=== PATIENT | female | born 1990 | race Caucasian/White ===

== ENCOUNTER 2024-12-03 21:44 | Emergency (ER) | payer OTHER, SELFPAY ==
--- OUTSIDE RECORDS SUMMARY | 2008-08-30 05:53 | XMS_ITS | Continuity of Care Document ---
Author Organization [facility] Address [address] [address] [place] [address] Phone Care Team Providers Care Quantometer Operator Name Role Phone Unavailable Unavailable Unavailable Allergies, Adverse Reactions, Alerts Substance Reaction Status Criticality No Known allergies Medications Medication Instructions Dosage Effective Dates (start - stop) Status Comments Levsin/SL 0.125 mg Sublingual Tab Use as directed. 1-2 qid prn - Active Zoloft 50 mg Tab Take one tablet by mouth daily - Active NuvaRing 0.12 mg -0.015 mg/24 hr Vaginal Use as directed - Active Procedures Procedure Date Ugi Endo; W/bx /mx Colonoscopy Flex; W/bx /mx Offic Cons New/estab Mod-hi 60 09 [id number] Advance Directives Directive Yes / No Effective Date File Name No Information Encounters Encounter Description Practice Location Reason(s) For Visit Diagnoses Date Provider Providers Copied on Encounter [facility], [address] [address], [place], [place], [id number], [place] tel:[phone] Dhiraj [facility] No Information 9 No Information [facility], [address] [address], [place], [place], [id number], [place] tel:[phone] [facility] No Information 9 No Information Offic Cons New/estab Mod-hi 60 [facility], [address] [address], [place], [place], [id number], tel:[phone] [facility] Abdominal pain (chief complaint)F requent bowel movements (chief complaint) Irritable Bowel Syndrome 9 No Information Referring Provider: Nando DALE, [address], [place], [address]. tel:[phone] Family History Family Member Type Diagnosis Age At Onset First degree family history Problem (finding) No history of Crohn's First degree family history Problem (finding) No Family history of No history of Colon Polyps First degree family history Problem (finding) No history of Ulcerative Colitis First degree family history Problem (finding) No history of Cancer, colon Payers Payer name Insurance type Covered alliance party ID Ladarius carmona(s) DEUS CR/MA CI [id number] Social History Type Description Quantity Date Captured Comments Sex Female Smoking Status No Information Chief Complaint And Reason For Visit No Information Reason For Referral Reason For Referral No Information History Of Present Illness Encounter Date Complaint History Of Prese nt Illness No Information Functional Status Date Functional Assessmen t No Information Instructions Date Instruction Additional Infor mation No Information Assessments Type Assessment Date No Information Patient Care Teams Name Effective Dates (start - stop) Status Members No Information
--- OUTSIDE RECORDS SUMMARY | 2008-08-30 05:53 | XMS_ITS | Continuity of Care Document ---
Author Organization [facility] Address [address] [address] [place] [address] Phone Care Team Providers Care Blockmason Name Role Phone Unavailable Unavailable Unavailable Allergies, [...] Diagnoses Date Provider Providers Copied on Encounter [facility], [address] [address], [place], [place], [id number], [place] tel:[phone] Dhiraj [facility] No Information 9 No Information [facility], [address] [address], [place], [place], [id number], [place] tel:[phone] [facility] No Information 9 No Information Offic Cons New/estab Mod-hi 60 [facility], [address] [address], [place], [place], [id number], tel:[phone] [facility] Abdominal pain (chief complaint)F requent bowel movements (chief complaint) Irritable Bowel Syndrome 9 No Information Referring Provider: Nando DALE, [address], [place], [address]. tel:[phone] Family History Family Member Type Diagnosis Age At Onset First degree family history Problem (finding) No history of Crohn's First degree family history Problem (finding) No Family history of No history of Colon Polyps First degree family history Problem (finding) No history of Ulcerative Colitis First degree family history Problem (finding) No history of Cancer, colon Payers Payer name Insurance type Covered democrat ID Ladarius carmona(s) [place] CR/MA CI [id number] Social History Type Description Quantity Date Captured [...]
--- OUTSIDE RECORDS SUMMARY | 2024-11-29 14:55 | XMS_ITS | Encounter Summary ---
Author Organization [facility] Address [address] [place] [address] Care Team Providers Care Speech Lang Path Name Role Phone Elsewhere, Pcp Primary Care Provider Unavailabl e Reason for Visit * Reason Comments Back Pain Patient presents wit h back pain that started about 4 days ago. She did build a barn by herself and thinks that is what caused the pain. Encounter Details Date Type Department Care Team (Late st Contact Info) Description 11/29/2024 2:55 PM CDT - 11/29/2024 4:00 PM CDT Emergency [facility] [address] [place] [address] Katie Lee P.A.-C., P.A. 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 Gender Identity Not on file Sexual Orientation Not on file documented as of this encounter Last Filed Vital Signs Vital Sign Reading Time Taken Comments Blood Pressure 141/89 11/29/2024 2:13 PM CDT Pulse 73 11/29/2024 2:13 PM CDT Temperature 36 C (96.8 F) 11/29/2024 2:13 PM CDT Respiratory Rate 18 11/29/2024 2:13 PM CDT Oxygen Saturation 100% 11/29/2024 2:13 PM CDT Inhaled Oxygen Concentration - - Weight 97.7 kg (215 lb 4.8 oz) 11/29/2024 2:09 P M CDT Height 172.7 cm (5' 8) 11/29/2024 2:09 PM CDT Body Mass Index 32.74 11/29/2024 2:09 PM CDT documented in this encounter Discharge Instructions * Attachments The following attachments cannot be sent through Care Everywhere. * Acute Back Pain Adult (Khmer) documented in this encounter Medications at Time of Discharge acetaminophen (TylenoL) 325 mg tablet Take 650 mg by mouth. 08/11/2018 albuterol 90 mcg/actuation inhaler Inhale 2 puffs every 6 (six) hours as needed for wheezing. 6.7 g 04/27/2024 baclofen (LioresaL) 10 mg tablet Take 1 tablet (10 mg total) by mouth 3 (three) times a day for 10 days. 30 tablet 11/29/2024 12/09/2024 benzonatate (Tessalon Perles) 100 mg capsule Take 1 capsule (100 mg total) by mouth 3 (three) times a day as needed for cough. 20 capsule 04/27/2024 dextroamphetamine -amphetamine (AdderalL) 15 mg tablet Take 15 mg by mouth. 09/28/2023 ibuprofen 600 mg tablet Take 600 mg by mouth. 06/24/2017 naproxen (Naprosyn) 500 mg tablet Take 1 tablet (500 mg total) by mouth every 12 (twelve) hours as needed for pain. 20 tablet 11/29/2024 documented as of this encounter Plan of Treatment Not on file documented as of this encounter Visit Diagnoses Diagnosis Pain Back- Primary documented in this encounter Administered Medications Inactive Administered Medications - up to 3 most recent administrations Medication Order MAR Action Action Date Dose Rate Site ketorolac injection 30 mg (ToradoL) 30 mg, intramuscular, Once, On 11/29/24 at 1536, For 1 dose, Adult IV push rate: Over 15 seconds. Peds IV push rate: Over 1 minute. Doses > 15 mg IV/IM are discouraged due to lack of additional analgesic benefit. Given 11/29/2024 3:44 PM CDT 30 mg Right Deltoid documented in this encounter Active and Recently Administered Medications Times are shown in CDT. Scheduled Medication Order 11/27/2024 11/28/2024 11/29/2024 ketorolac injection 30 mg (ToradoL) (COMPLETED) 30 mg, intramuscular, Once, On 11/29/24 at 1536, For 1 dose, Adult IV push rate: Over 15 seconds. Peds IV push rate: Over 1 minute. Doses > 15 mg IV/IM are discouraged due to lack of additional analgesic benefit. 1544 (Given - Provid er: Marni Felix) documented in this encounter Care Teams Speech Lang Path Relationship Specialty Start Date End Date Elsewhere, Pcp PCP - General Family Medicine 07/17/20 documented as of this encounter
[2024-12-03] VITALS (19 sets, daily range): BP systolic 127–152; BP diastolic 82–97; PULSE 70–82; RESP 14–22; TEMP 36.6; O2SAT 97–100; BMI 26.6
--- OUTSIDE RECORDS SUMMARY | 2024-12-03 21:46 | XMS_ITS | Encounter Summary ---
Author Organization [facility] Address [address] [place] [address] Care Team Providers Care Chemotherapist Name Role Phone Zoila Huff MD Primary Care Provider Reason for Visit * Reason Comments Medication Problems Encounter Details Date Type Department Care Team (Late st Contact Info) Description 01/20/2023 Nurse Triage [facility] [address] [place], [place] [phone] Zoila Huff MD [address] [place] [phone] Medication Problems Social History Tobacco Use Types Packs/Day Years Used Date Smoking Tobacco: Former Cigarettes Q uit: 05/27/2013 Smokeless Tobacco: Former Chew Alcohol Use Standard Drinks/Week Comments Not Currently 0 (1 standard drink = 0.6 oz pur e alcohol) PHQ-2 Answer Date Recorded PHQ-2 Score 2 08/01/2022 Financial Resource Strain Answer Date R ecorded Is it hard for you to pay fo r the very basics like food, housing, medical care or heating? No 08/01/2022 Food Insecurity Answer Date Recorded Does your food run out before you have the money to buy more? No 08/01/2022 Transportation Needs Answer Date Record ed Does a lack of transportatio n keep you from your medical appointments or from getting your medications? 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 Not on file Not on file Not on file documented as of this encounter Nursing Notes * oZila Huff MD - 01/20/2023 4:42 PM CST Rx sent as requested ENFORCEMENT INSPECTOR * Elizabeth Kilpatrick RN - 01/20/2023 4:31 PM CST Clinician: Review order(s) and sign as appropriate and Close encounter Patient/youth care worker request: New Order: Medication Specific Request: Adderall 30 mg Take 0.5 tablet three times daily Reason for Disposition Caller has NON-URGENT medicine question about med that PCP or specialist prescribed and triager unable to answer question Protocols used: Medication Question [id number] Spoke with patient states needs Adderall 30 mg Take 0.5 tablet three times daily sent to [facility]. Prescription was sent for Adderall 15 mg and there are no pharmacies that have the 15 mg dose. ENFORCEMENT INSPECTOR * Daren Quiñones - 01/20/2023 4:21 PM CST Medications - Med Change / Question Is this a medication change or a general question? Med Change What is the name and dose of the current medication? Adderall 15 mg. 3 x day. Pt states all of the pharmacies are out of the 15 mg but they have the 30 mg. So the pharmacist recommend to have a new Rx for the 30 mg tabs and they can cut it in half. Please assist Do you know what medication/dosage you would like to change to? (If yes, what is the medication name/dosage?) Yes: Adderall 30 mg Why do you need to change medication/dosage? Because all pharmacies are out of the 15 mg. How often do you take it? 3 x day of 15 mg Who prescribed it? Zoila Huff MD Additional comments (related to the above concern): For this medication, patient would like it filled at the pharmacy listed in Medication Management. Is it okay to leave a detailed message on your voicemail? Yes Is there anything else I can help you with today? No ENFORCEMENT INSPECTOR documented in this encounter Plan of Treatment Not on file documented as of this encounter Visit Diagnoses Not on filedocumented in this encounter Care Teams Chemotherapist Relationship Specialty [place] [address] [address] [place] [address] PCP - General Family Practice 10/31/15 documented as of this encounter
--- OUTSIDE RECORDS SUMMARY | 2024-12-03 21:46 | XMS_ITS | Clinical Summary ---
Author Organization [facility] Address [facility] [place] [address] Care Team Providers Care Icu Tech Name Role Phone Zoila Huff MD Primary Care Provider [phone] [place] William DO Unavailable [phone] Allergies Active Allergy Reactions Criticality Noted Date Comments Amoxicillin Hives,Swelling 08/26/2011 Varenicline 07/20/2013 Metronidazole Hcl Hives,Swelling 03/01/2013 Medications EPINEPHrine (EPIPEN) 0.3 MG/0.3ML injection Inject 0.3 mLs (0.3 mg) into the muscle once as needed for anaphylaxis Then go immediately to the emergency department 1 each 0 3 Active ibuprofen (ADVIL/MOTRIN) 600 MG tabletIndication s:Postoperative pain Take 1 tablet (600 mg) by mouth every 6 hours as needed for pain Take w/ food 30 tablet 8 Active acetaminophen (TYLENOL) 325 MG tabletIndication s:S/P hysterectomy Take 2 tablets (650 mg) by mouth every 4 hours as needed for other (mild pain) 100 tablet 9 Active oxyCODONE (ROXICODONE) 5 MG tabletIndication s:S/P hysterectomy Take 1-2 tablets (5-10 mg) by mouth every 3 hours as needed for pain (Moderate to Severe) 40 tablet 9 Active Active Problems Problem Noted Date Diagnosed Date Retained placenta with hemorrhage, co ndition 06/24/2017 Resolved Problems Problem Noted Date Diagnosed Date Resolved Date Normal labor and delivery 06/19/2017 Abdominal pain 04/17/2017 06/24/2017 Encounter for triage in patient 03/15/2017 06/24/2017 (spontaneous vaginal delivery) 04/25/2014 06/24/2017 Supervision of low-risk 04/21/2014 06/24/2017 Indication for care or inter vention related to labor and delivery 12/30/2013 06/24/2017 Overview (01/09/2015): Diagnosis updated by automated process. Provider to review and confirm. Indication for care in labor or delivery 12/08/2013 06/24/2017 Abdominal pain, right lower quadrant 07/26/2013 06/24/2017 Immunizations Immunization Administration Dates Next Due TDAP Vaccine (Adacel) 06/21/2017 Family History Medical History Relation Comments Diabetes Maternal Grandmother Relation Status Comments Maternal Grandmother Social History Tobacco Use Types Packs/Day Years Used Date Smoking Tobacco: Former Cigarettes Q uit: 05/30/2013 Smokeless Tobacco: Never Alcohol Use Standard Drinks/Week Comments Yes 0 (1 standard drink = 0.6 oz pur e alcohol) occasionally Comments No Sex and Gender Information Value Date Recorded Sex Assigned at Not on file Legal Sex Female 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 Gender Identity Not on file Sexual Orientation Not on file Last Filed Vital Signs Vital Sign Reading Time Taken Comments Blood Pressure 117/70 12/12/2018 6:11 PM CDT Pulse 77 12/12/2018 6:11 PM CDT Temperature 37.1 C (98.8 F) 12/12/2018 4:21 PM CDT Respiratory Rate 16 12/12/2018 6:27 PM CDT Oxygen Saturation 98% 12/12/2018 6:27 PM CDT Inhaled Oxygen Concentration - - Weight 81.6 kg (180 lb) 12/12/2018 4:21 PM CDT Height 172.7 cm (5' 8) 12/12/2018 4:21 PM CDT Body Mass Index 27.37 12/12/2018 4:21 PM CDT Plan of Treatment Not on file Insurance [facility] Care Teams Icu Tech Relationship Specialty Start Date End Date Zoila Huff MD [place] [address] [address] [place] [address] PCP - General Family Practice 03/25/14 [place] William DO [place] [address] [address] [place] [address] apartment leasing consultant 03/25/14
--- OUTSIDE RECORDS SUMMARY | 2024-12-03 21:46 | XMS_ITS | Encounter Summary ---
Author Organization [facility] Address [address] [place] [address] Care Team Providers Care Layer Out Plate Glass Name Role Phone Zoila Huff MD Primary Care Provider Reason for Visit * Reason Onset Date Comments Medication Request 11/09/2015 Encounter Details Date Type Department Care Team (Late st Contact Info) Description 11/09/2015 Nurse Triage [facility] [address] [place], [place] [phone] Zo[place] [id number] [place] [phone] Medication Request Social History Tobacco Use Types Packs/Day Years Used Date Smoking Tobacco: Former Smokeless Tobacco: Never Comments:Quit smokin Alcohol Use Standard Drinks/Week Comments Yes 0 (1 standard drink = 0.6 oz pur e alcohol) 2 drinks twice monthly Comments Yes Sex and Gender Information Value Date Recorded Sex Assigned at Not on file Legal Sex Female 4:54 AM CDT Gender Identity Not on file Sexual Orientation Not on file 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 * Zoila Huff MD - 11/09/2015 1:29 PM CDT I will have to see her tomorrow to see if BV or yeast at this point. Can she come at 10:30 tomorrow? * Nasima Breen RN - 11/09/2015 10:45 AM CDT Reason for Call: Medication Request. Next Steps: Document further recommendations and route to appropriate person or pool. Caller IS expecting a call back from Care Team. Additional Information: Patient was treated by Urgent Care on 10/29/15 for sinus infection and BV, The BV symptoms did not improve, is requesting an ORAL RX for this. Declined appointment. Please advise. Protocol: VAGINAL [id number] Affirmative: Bad smelling vaginal discharge Disposition of See Within 3 Days In Office suggested. Called patient back. Still with same vaginal discharge, whitish, slight odor, not itchy. Treated for the BV with Clindamycin vaginal suppositories for 3 days, states those don't tend to work for her.Also had Doxycycline 100 mg BID for 5 days for the sinus infection. After UC, was seen in the ED, has endometriosis, and was seen in OBG for follow up. Pharmacy: [facility] * Lisa Aguirre - 11/09/2015 10:04 AM CDT Pt calling advised that she has a vaginal bacterial infection and was seen on 10-29-15 in urgent care. Pt still has same symptoms as when in urgent care discharge slight odor,and burning. Pt advised that the medication prescribed in urgent care has not worked and requesting something else be prescribed. documented in this encounter Plan of Treatment Not on file documented as of this encounter Visit Diagnoses Not on filedocumented in this encounter Additional Health Concerns Infection Onset Date Last Indicated Resolved Time R/O COVID19 01/27/2020 01/27/2020 01/29/2020 5:38 PM DATA ENTRY ASSOCIATE R/O COVID19 12/12/2020 12/12/2020 12/13/2020 1:04 PM CDT COVID19 12/12/2020 12/12/2020 01/01/2021 3:17 AM CDT documented as of this encounter Care Teams Layer Out Plate Glass Relationship Specialty [place] [address] [place] [address] PCP - General Family Practice 10/31/15 documented as of this encounter
--- OUTSIDE RECORDS SUMMARY | 2024-12-03 21:46 | XMS_ITS | Encounter Summary ---
Author Organization [facility] Address [address] [place] [address] Care Team Providers Care Dryland Farmer Name Role Phone Zoila Huff MD Primary Care Provider Encounter Details Date Type Department Care Team (Late st Contact Info) Description 09/21/2024 E-Visit [facility] Medicine [address] [place], [place] [phone] Christy Arriaga, FIRER RETORT, WASH TEST CHECKER [address] [place] [address] Social History Tobacco Use Types Packs/Day Years Used Date Smoking Tobacco: Former Cigarettes Q uit: 05/27/2013 Smokeless Tobacco: Former Chew Alcohol Use Standard Drinks/Week Comments Not Currently 0 (1 standard drink = 0.6 oz pur e alcohol) PHQ-2 Answer Date Recorded PHQ-2 Score 1 07/17/2023 Financial Resource Strain Answer Date R ecorded [...] Recor ded Last EPDS Total Score 12 04/12/2024 Last EPDS Self Harm Result Not on file 04/12 Comments No Sex and Gender Information Value Date Recorded Sex Assigned at Not on file Legal Sex Female 4:54 AM CDT Gender Identity Not on file Sexual Orientation Not on file 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
--- OUTSIDE RECORDS SUMMARY | 2024-12-03 21:46 | XMS_ITS | Clinical Summary ---
Author Organization [facility] Address [address] [place] [address] Care Team Providers Care Fiscal Economist Name Role Phone Zoila Huff MD Primary Care Provider Source Comments You are receiving this document as you are listed as the primary care provider,follow-up provider, or the patient has been referred to you for consultation.This is in compliance with the Medicare and[facility] EHR Incentive Program,which states Providers who transition their patient to another setting of careor provider of care or refers their patient to another provider of care shouldprovide summary care record for each transition of care or referral. [place] Allergies Active Allergy Reactions Criticality Noted Date Comments Amoxicillin Rash 05/14/2005 Duloxetine Other, see comments Low 08/18/2021 Flu like feeling, drowsiness Metronidazole Anaphylaxis High 07/03/2020 Varenicline Headache,Nausea And Vomiting 07/13/2012 Medications EPINEPHrine (EPIPEN) 0.3 MG/0.3ML injection Inject 0.3 mL (0.3 mg) intramuscularly at bedtime as needed. 07/17/19 21 Active levalbuterol (XOPENEX HFA) 45 mcg/actuation inhalerIndication s:Cough, unspecified type Inhale 1-2 Puffs every 4 hours as needed for Wheezing or Shortness of Breath (or cough). 1 Each 06/17/19 25 Active guaiFENesin-codei ne (ROBITUSSINAC) 100-10 MG/5ML solutionIndicatio ns:Cough, unspecified type Take 5 mL by mouth every 4 hours as needed. 118 mL 06/17/19 25 Active fluconazole (DIFLUCAN) 150 MG tabletIndications :Acute sinusitis, recurrence not specified, unspecified location Take 1 tablet every other day to prevent yeast infection. 5 Tablet 06/17/19 25 Active amphetamine-dextr oamphetamine (ADDERALL) 15 MG tabletIndications :Attention Deficit Hyperactivity Disorder Take 1 Tablet (15 mg) by mouth three times a day for 30 days. 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 Zamorano Resolved Problems Problem Noted Date Diagnosed Date Resolved Date Depression 11/02/2022 07/17/2023 Effusion of knee 01/14/2020 06/19/2021 Endometriosis 08/17/2019 01/12/2021 Retained placenta with hemor rhage, condition 06/24/2017 08/13/2017 Supervision of other normal , antepartum 03/31/2017 06/24/2017 Mild episode of recurrent ma rosina depressive disorder 08/13/2016 07/17/2023 Controlled substance agreement signed 05/01/2016 08/19/2018 Overview (10/08/2017): Diagnosis: severe dysmenorrhea Medication: norco 5/325 Controlled Substance Agreement reviewed and signed: yes Date agreement signed: 05/01/2016 Refill plan: #30 every month Clinician: Zoila Huff MD Severe dysmenorrhea 05/01/2016 03/31/19 18 Encounter for supervision of other normal 12/24/2013 11/02/2014 Overview (10/30/2016): Supervision of other normal Abdominal pain, chronic, right lower quadrant 07/31/19 14 09/28/2013 Anxiety 07/07/2013 11/25/2015 Menorrhagia 07/07/2013 09/28/2013 Dysmenorrhea 07/07/2013 09/28/2013 Malpositioned IUD 09/07/2012 07/07/2013 IUD (intrauterine device) in place 08/08/2012 08/30/2013 Overview (10/12/2015): [place] Assessment & Plan (08/30/2013 3:21 PM CDT): fell out Tobacco abuse 06/17/2012 08/30/2013 Encounter for supervision of other normal 11/14/2009 06/02/2012 Overview (10/30/2016): LW Modifier: Unknown LMP, for MSR purposes, 09/20/2009 LW Onset: edc06/26/10 ; Preg Normal Not 1st Preg Irritable bowel syndrome 04/28/200909/2009 Molluscum contagiosum 08/18/20082011 Overview (10/12/2015): LW Onset: 07/16 Pain in joint, lower leg 01/30/200706/2014 Overview (10/30/2016): LW Modifier: Right > Left (MRI R 02/17/07 chondromal) LW Onset: 2000 ; Patellofemoral Pain Syndrome Major depressive disorder, single episode 06/26/2006 09/28/2013 Overview (10/30/2016): Depression Major NOS Exercise-induced bronchospasm 06/26/2006 04/13/2014 Overview (10/30/2016): Asthma Exercise Induced Encounters Date Type Department Care Team Description 10/29/[address] [address] Zoila Huff MD Refill 09/21/2024 E-Visit [facility] [address] [place] [address] Christy Arriaga, WALLPAPER REMOVER STEAM, INSPECTOR MACHINED PARTS from Last 3 Months Immunizations Immunization Administration Dates Next Due 4vHPV (Gardasil) 08/04/2007,01/28/2007, 7 DTP 05/20/1995, 2,04/07/1991,1990 Flu Vac Preserv Free (3+yrs) 01/14/2012, 11/14/2009,11/22/2008,2007 HepA Ped/Adol (1-18 yrs) 12/14/2007,08/04/2007 HepB Ped/Adol (0-18 yrs) 09/19/2003,04/04/2003,0 11/04/2002 Influenza IIV4 (Quadrivalent ) 0.5mL (43516) 12/19/2016,11/10/2015,12/12/2014,2013 MCV4 (Menactra) 02/07/2005 MMR 11/04/2002,11/24/1991 Pfizer Monovalent 12+ Purple Top 08/25/2021 Polio, Unspecified Formulation 6,11/24/1991,04/07/1991,1990 TDAP (ADACEL) 08/27/2007 TDAP (BOOSTRIX) 02/08/2014 Td 10/22/2002 Tdap 06/21/2017 Family History Medical History Relation Name Comments Depression Father Ramakrishna Migraines Brother 1 Macular Degeneration Brother 2 Alzheimer's Maternal Grandfather Diabetes Maternal Grandmother Florinda High Cholesterol Maternal Grandmother Florinda Hypertension Maternal Grandmother Florinda Multiple Sclerosis Other paternal side of family Parkinsons Other maternal side o f family Cancer, Breast Paternal Aunt postmenopaus al Cancer, Lung Paternal Grandfather Cataract Paternal Grandmother Florinda High Cholesterol Paternal Grandmother Florinda Macular Degeneration Paternal Grandmother Florinda Amblyopia/Strabismus Negative Family History Cardiovascular Disease Negative Family History Glaucoma Negative Family History Retinal Detachment Negative Family History Thyroid Disorder Negative Family History Relation Name Status Comments Father Ramakrishna Alive Mother Alive Brother 1 Alive Brother 2 Alive Maternal Grandfather Maternal Grandmother Florinda Alive Other Paternal Aunt Paternal Grandfather Paternal Grandmother Florinda Alive Social History Tobacco Use Types Packs/Day Years Used Date Smoking Tobacco: Former Cigarettes Q uit: 05/27/2013 Smokeless Tobacco: Former Chew Tobacco Cessation:Counseling Given: No Alcohol Use Standard Drinks/Week Comments Not Currently [...] 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, 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 Not on file Not on file Not on file Last Filed Vital Signs Vital Sign Reading Time Taken Comments Blood Pressure 139/78 06/16/2024 1:53 PM CDT Pulse 88 06/16/2024 1:53 PM CDT Temperature 36.8 C (98.3 F) 06/16/2024 1:53 PM CDT Respiratory Rate 18 06/16/2024 1:53 PM CDT Oxygen Saturation 100% 06/16/2024 1:53 PM CDT Inhaled Oxygen Concentration - - Weight 84.8 kg (187 lb) 01/05/2024 9:26 AM CDT Height 172.7 cm (5' 8) 01/05/2024 9:26 AM CDT Body Mass Index 28.43 01/05/2024 9:26 AM CDT Plan of Treatment Health Maintenance Due Date Last Done Comments HepA Vaccine (2 of 2 - Risk 2-dose series) 06/13/2008 12/14/2007, 08/04/2007 COVID-19 Vaccine (2 - season) 2024 08/25/2021 Influenza Vaccine (#1) 2024 7, 11/10/2015, 12/12/2014, Additional history exists Adult Preventive Visit 07/16/2025 07/17/2023 DTaP/Tdap/Td Vaccine (8 - Tdap) 06/22/2027 06/21/2017, 02/08/2014, 08/27/2007, Additional history exists Zoster/Shingles Vaccine (1 of 2) 02/27/2040 IPV (Polio) Vaccine Completed 05/20/1995, 11/24/1991, 04/07/1991, Additional history exists HepB Vaccine Completed 09/19/2003, 03/11, 11/04/2002 MCV4 Vaccine Aged Out 02/07/2005 No longer eligi ble based on patient's age to complete this topic HPV Vaccine Completed 08/04/2007, 01/09, 06/26/2006 Cervical Cancer Screening Discontinued 2017, 05/06/2014 (Completed), 06/17/2012, Additional history exists Hep C Screening (Preventive Services) Completed 08/17/2019, 06/04/2018, 07/07/2013, Additional history exists HIV Screening (Preventive Services) Completed 07/16/2021, 08/17/2019, 06/04/2018, Additional history exists Hib Vaccine Aged Out No longer eligi ble based on patient's age to complete this topic Meningococcal B Vaccine Aged Out No l onger eligible based on patient's age to complete this topic Pneumococcal Vaccine Aged Out No long er eligible based on patient's age to complete this topic Procedures Procedure Name Priority Date/Time Associated Diagnosis Comments HIV 1/2 AG/AB 4TH GEN Routine 07/16/2021 3:16 PM CDT Vaginal discharge HEPATITIS C ANTIBODY, WITH REFLEX (ANTI-HCV) Routine 08/17/2019 2:25 PM CDT Screening for STD (sexually transmitted disease) ANATOMICAL PATH LIQUID BASED Routine 08/01/2017 3:15 PM CDT from Last 3 Months or Most Recently Relevant to Health Maintenance Results * HIV 1/2 Ag/Ab 4th Generation (07/16/2021 3:16 PM CDT) Pathologist [facility] HIV 1/2 Antigen/Antib sirena (4th generation) Negative (Non Reactive) Negative (Non Reactive) 07/16/2021 9:16 PM CDT [facility] Comment:HIV-1 p24 Antigen an d HIV-1/HIV-2 Antibody not detected Blood Venipuncture / Unknown 07/16/2021 3:16 PM CDT 07/16/2021 3:16 PM CDT Alber Cam PA-C LAB_1 Final Result Performing Organization Address [facility] de Phone Number [facility] [address] [place] [address] * Hepatitis C Antibody [HCAB] (08/17/2019 2:25 PM CDT) Pathologist [facility] Hepatitis C Antibody Negative (Non Reactive) Negative (Non Reactive) 08/17/2019 6:56 PM CDT [facility] Comment:Antibodies to HCV no t detected. Does not exclude the possiblity of exposure to HCV. Blood Venipuncture / Unknown 08/17/2019 2:25 PM CDT 08/17/2019 2:25 PM CDT Zulay Stock MD LAB_1 Final Result Performing Organization Address [facility] Co de Phone Number [facility] [address] [place] [address] * Pap Smear (08/01/2017 3:15 PM CDT) 08/01/2017 3:15 PM CDT Narrative PN SOFT - 08/06/2017 3:13 PM CDT FINAL GYNECOLOGICAL CYTOLOGY REPORT Pathology #: [id number] Date Obtained: 08/01/2017 Date Received: 08/05/2017 INTERPRETATION/RESULTS: Negative for Intraepithelial Lesion or Malignancy. SPECIMEN ADEQUACY: Satisfactory for Evaluation. Endocervical cells/transformation zone component present. Verified on 08/06/2017 by SARAN HAM(ASCP) (electronic signature) CLINICAL NOTES: Abnormal bleeding: No, LMP: 08/01/17, Menstrual status: Post , Current form of therapy: None apply LIQUID BASED PAP SMEAR SPECIMEN TYPE: ROUTINE CERVICAL PAP TEST PLEASE NOTE: The pap smear is a screening test designed to aid in the detection of cervical cancer and its precursor lesions. It is not a diagnostic procedure and should not be used as the sole means of detecting cervical cancer. Both false-positive and false-negative reports may occur. Performed at [facility], [address] [place] [address] True Antonio MD LAB_1 Final Result PN SOFT [address] [place] [address] from Last 3 Months or Most Recently Relevant to Health Maintenance Insurance FULLY INSURED R FULLY INSURED FULLY INSURED FULLY INSURED [phone] (Work) [id number] [id number] * Guarantor: Ramakrishna Ibarra Account Type Relation to Patient Date of Phone Billing Address Personal/Family 1965 (Work) [id number] [id number] Care Teams Fiscal Economist Relationship Specialty [place] [address] [address] [address] PCP - General Family Practice 10/31/15
--- OUTSIDE RECORDS SUMMARY | 2024-12-03 21:46 | XMS_ITS | Encounter Summary ---
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 PDMP reviewed and no concerns noted. Last filled: 09/24/24 Last PCP visit: 06/10/24 Prescription renewed as requested. documented in this encounter Plan of Treatment Not on file documented as of this encounter Visit Diagnoses Diagnosis ADHD (attention deficit hyperactivity disorder), combined type (HRC) Attention deficit disorder with hyperactivity documented in this encounter Care Teams Director Of Head Start Relationship Specialty [place] [address] [address] PCP - General Family Practice 10/31/15 documented as of this encounter
[2024-12-03 22:19] LABS: Hematocrit* 41.2 % (33.0-51.0); Hemoglobin* 14.1 gm/dL (12.0-16.0); Immature Granulocytes Abs Auto 0.01 K/uL (0.00-0.30); Immature Granulocytes Pct Auto 0.1 %; Lymphocytes Absolute Auto 2.94 K/uL (0.90-2.90); Mean Corpuscular HGB Conc 34 gm/dL (32-36); Mean Corpuscular Hemoglobin 29 pg (26-34); Mean Corpuscular Volume 86 fL (80-100); RDW Coefficient of Variation % 12.5 % (11.5-15.5); Red Blood Count* 4.80 m/uL (4.00-5.20); White Blood Count* 9.94 K/uL (4.50-11.00)
[2024-12-03 22:22] LABS: Troponin, Point-of-Care* 0.00 ng/ml (0.01-0.04)
[2024-12-03 22:29] LABS: Slide Review Reflex No
[2024-12-03 22:34] LABS: Albumin* 4.7 g/dL (3.3-5.0); Chloride* 100 mmol/L (96-114); Potassium* 3.5 mmol/L (3.6-5.1); Sodium* 138 mmol/L (135-149)
[2024-12-03 22:36] LABS: Blood Urea Nitrogen* 7 mg/dL (5-24); Creatinine* 0.9 mg/dL (0.5-1.5); Est. Creatinine Clearance* 88.85; Estimated Glomerular Filt Rate 86 ml/min
[2024-12-03 22:37] LABS: Alanine Aminotransferase* 20 U/L (4-35); Alkaline Phosphatase* 57 U/L (40-150); Anion Gap 8 mEq/L (7-15); Aspartate Amino Transferase* 35 U/L (12-35); Bilirubin Total* 0.9 mg/dL (0.1-1.5); Calcium* 9.6 mg/dL (8.4-10.6); Carbon Dioxide* 30 mmol/L (20-32); Glucose* 91 mg/dL (60-115); Total Protein* 7.5 g/dL (6.0-8.3)
--- NOTE | 2024-12-03 22:54 | CRLHL7_ITS ---
For Patients: As a result of the Century Cures Act, medical imaging exams and procedure reports are released immediately into your electronic medical record. You may view this report before your referring provider. If you have questions, please contact your health care provider. INDICATION: Shortness of breath, cough, chest pain. TECHNIQUE: Chest 2 view. COMPARISON: None. FINDINGS: Cardiovascular: Heart size and pulmonary vasculature are within normal limits. Lungs and pleural spaces: The lungs are clear. No sign of pleural effusion. No pneumothorax identified. Bones and soft tissues: Metallic densities projected over the breasts, presumably piercings. The bones are unremarkable. IMPRESSION: No acute cardiopulmonary findings. Dictated by Rin Palencia MD @ 12/03/2024 11:21:56 PM (Electronically Signed)
--- NOTE | 2024-12-03 22:57 | ED_ITS ---
HPI - Chest Pain General Time Seen by Provider: 22:57 Date Seen: 12/03/24 Chief Complaint: Chest Pain Stated Complaint: chest pain Time Seen by Provider: 12/03/24 22:57 Source: patient Mode of arrival: ambulatory History of Present Illness HPI narrative: Alexandra is a 34-year-old female who presents the emergency department for evaluation of chest pain. Patient complains of chest pain and palpitations that have been ongoing for the past 1 week. Patient reports chest pain as constant however does report worsening pain tonight. Patient reports some associated shortness of breath, nausea. Patient does report history of cardioversion in the past for possible AFib. Patient is not on any cardiac medications and has not followed up with a jewel bearing broacher. Patient denies any recent fever, chills, cough or cold-like symptoms. No other complaints. Related Data Home Medications ?Medication ?Instructions ?Recorded ?Confirmed dextroamphetamine-amphetamine 15 15 mg PO TID 12/03/24 12/03/24 mg tablet (Adderall) Allergies Allergy/AdvReac Type Severity Reaction Status Date / Time amoxicillin Allergy Hives Verified 12/03/24 21:55 metronidazole (From Flagyl) Allergy Verified 12/03/24 21:55 Review of Systems Narrative Past medical history, past surgical history, medications, allergies, family history, and social history were reviewed with the patient. No additional pertinent items. A medically appropriate review of systems was performed with pertinent positives and negatives noted in HPI, all other systems negative. PFSH PFSH Social History Non-prescribed substance use: denies use Exam Narrative Exam Narrative: General: Afebrile, no acute distress HEENT: Normocephalic, atraumatic, conjunctiva normal. MMM Neck: non-tender, supple Cardio: regular rate. regular rhythm Resp: Normal work of breathing, no respiratory distress, lungs clear bilaterally, no wheezing, rhonchi, rales Chest/Back: no visual signs of trauma, no midline tenderness, no CVA tenderness Abdomen: soft, non distension, no tenderness, no peritoneal signs Neuro: alert and fully oriented. CN II-XII grossly intact. Grossly normal strength and sensation in all extremities. MSK: no deformities. Normal range of motion Integumentary/Skin: no rash visualized, normal color Psych: normal affect, normal behavior Const Vital Signs, click to edit/add: Vital Signs - 24 hr 12/03/24 21:50 12/03/24 22:03 12/03/24 22:08 Temperature 98 F Pulse Rate 73 80 Pulse Rate [Pulse Oximeter] 76 Respiratory Rate 22 20 20 Blood Pressure 139/86 Blood Pressure [Right Upper Arm] 152/95 H Pulse Oximetry 100 100 99 Oxygen Delivery Method Room Air 12/03/24 22:09 12/03/24 22:15 12/03/24 22:17 Temperature Pulse Rate 78 81 77 Pulse Rate [Pulse Oximeter] Respiratory Rate 16 16 17 Blood Pressure 132/97 H Blood Pressure [Right Upper Arm] Pulse Oximetry 100 99 99 Oxygen Delivery Method 12/03/24 22:30 12/03/24 22:32 12/03/24 22:45 Temperature Pulse Rate 72 75 70 Pulse Rate [Pulse Oximeter] Respiratory Rate 16 14 16 Blood Pressure 129/95 H Blood Pressure [Right Upper Arm] Pulse Oximetry 98 99 98 Oxygen Delivery Method 12/03/24 22:47 12/03/24 23:00 12/03/24 23:02 Temperature Pulse Rate 77 82 Pulse Rate [Pulse Oximeter] Respiratory Rate 17 16 18 Blood Pressure 131/82 127/83 Blood Pressure [Right Upper Arm] Pulse Oximetry 99 99 Oxygen Delivery Method 12/03/24 23:15 12/03/24 23:17 12/03/24 23:18 Temperature Pulse Rate 73 70 75 Pulse Rate [Pulse Oximeter] Respiratory Rate 16 16 15 Blood Pressure 129/86 Blood Pressure [Right Upper Arm] Pulse Oximetry 97 98 98 Oxygen Delivery Method 12/03/24 23:30 12/03/24 23:32 12/03/24 23:45 Temperature Pulse Rate 75 75 74 Pulse Rate [Pulse Oximeter] Respiratory Rate 20 15 16 Blood Pressure 141/94 H Blood Pressure [Right Upper Arm] Pulse Oximetry 99 98 98 Oxygen Delivery Method 12/03/24 23:47 12/04/24 00:00 12/04/24 00:02 Temperature Pulse Rate 70 83 76 Pulse Rate [Pulse Oximeter] Respiratory Rate 16 16 16 Blood Pressure 133/97 H 143/97 H Blood Pressure [Right Upper Arm] Pulse Oximetry 99 98 99 Oxygen Delivery Method 12/04/24 00:02 12/04/24 00:02 12/04/24 00:03 Temperature Pulse Rate 76 76 73 Pulse Rate [Pulse Oximeter] Respiratory Rate 16 16 19 Blood Pressure 143/97 H 143/97 H Blood Pressure [Right Upper Arm] Pulse Oximetry 99 99 99 Oxygen Delivery Method 12/04/24 00:15 12/04/24 00:17 12/04/24 00:31 Temperature Pulse Rate 71 69 68 Pulse Rate [Pulse Oximeter] Respiratory Rate 12 18 18 Blood Pressure 134/86 Blood Pressure [Right Upper Arm] Pulse Oximetry 98 99 99 Oxygen Delivery Method 12/04/24 00:32 12/04/24 00:33 12/04/24 00:45 Temperature Pulse Rate 68 65 71 Pulse Rate [Pulse Oximeter] Respiratory Rate 18 16 20 Blood Pressure 139/81 Blood Pressure [Right Upper Arm] Pulse Oximetry 98 98 99 Oxygen Delivery Method 12/04/24 00:47 12/04/24 01:00 Temperature Pulse Rate 75 75 Pulse Rate [Pulse Oximeter] Respiratory Rate 10 L 14 Blood Pressure 129/74 Blood Pressure [Right Upper Arm] Pulse Oximetry 99 98 Oxygen Delivery Method Course Vital Signs Vital signs: Initial Vital Signs Temperature 98 F 12/03/24 21:50 Temperature Source Temporal Artery Scan 12/03/24 21:50 Pulse Rate 76 12/03/24 21:50 Respiratory Rate 22 12/03/24 21:50 Blood Pressure 152/95 H 12/03/24 21:50 Blood Pressure Mean 114 H 12/03/24 21:50 Blood Pressure Position Semi-Fowlers 12/03/24 21:50 Pulse Oximetry 100 12/03/24 21:50 Oxygen Delivery Method Room Air 12/03/24 21:50 Vital Signs Temperature 98 F 12/03/24 21:50 Pulse Rate 76 12/03/24 21:50 Respiratory Rate 22 12/03/24 21:50 Blood Pressure 152/95 H 12/03/24 21:50 Pulse Oximetry 100 12/03/24 21:50 Oxygen Delivery Method Room Air 12/03/24 21:50 Temperature 98 F 12/03/24 21:50 Pulse Rate 75 12/04/24 01:00 Respiratory Rate 14 12/04/24 01:00 Blood Pressure 129/74 12/04/24 00:47 Pulse Oximetry 98 12/04/24 01:00 Oxygen Delivery Method Room Air 12/03/24 21:50 Medications Administered Medications: Discontinued Medications Generic Name Dose Route Start Last Admin Trade Name Freq PRN Reason Stop Dose Admin Ibuprofen 600 mg 12/03/24 23:51 12/03/24 23:57 Ibuprofen 200 Mg Tablet PO 12/03/24 23:52 600 mg ONCE ONE Administration Ketorolac Tromethamine 15 mg 12/03/24 23:35 12/03/24 23:43 Ketorolac 15 Mg/Ml Inj IVP 12/03/24 23:36 Not Given ONCE ONE Lidocaine/Aluminum/Magnesium/Simeth 30 ml 12/03/24 23:51 12/03/24 23:58 Gi Cocktail (Visc Lido/Antacid) 30 Ml PO 12/03/24 23:52 30 ml ONCE ONE Administration MDM - Chest Pain MDM Narrative Medical decision making narrative: Alexandra is a 34-year-old female who presents the emergency department for evaluation of chest pain. Upon arrival patient is nontoxic appearing, afebrile, in distress secondary to pain. Patient is slightly hypertensive upon arrival but otherwise hemodynamically stable. Differential diagnosis includes but is not limited to ACS versus atypical chest pain versus PE versus pneumonia versus viral illness versus pleural effusion versus pneumothorax versus gastritis versus esophageal spasms along others. Upon arrival patient was treated with ibuprofen, GI cocktail for pain. I personally reviewed interpreted EKG which demonstrates normal sinus rhythm with a ventricular rate of 72 beats per minute, normal axis, QTC 448, no acute ischemic change. Comprehensive labs remarkable for white blood cell count 9.9, hemoglobin 14.1, no acute metabolic electrolyte abnormality, negative troponin, negative D-dimer, normal lipase, viral testing negative for influenza/flu/COVID. I personally reviewed interpreted chest x-ray which is unremarkable with no ac kluti kaah findings, no cardiomegaly, no focal infiltrate, pleural effusion, pneumothorax. I discussed results with patient, overall ED workup unremarkable with no evidence of ACS/PE/infectious etiology/pneumothorax/pleural effusion. Patient does report improvement of symptoms after GI cocktail, ibuprofen. Discussed that this could be gastritis/acid reflux/esophageal spasms in nature also could be musculoskeletal as patient does work and does a lot of heavy lifting. In the way patient was comfortable discharge home which I think is reasonable with continued supportive care however do strongly encourage her to follow-up closely with her primary care provider as well as jewel bearing broacher, would consider Holter monitor if continues to experience palpitations, chest pain. Strict return precautions discussed. Patient understands and agrees the plan. Medical Records Data Attestation: I reviewed the patient's medical records. Lab Data Attestation: I reviewed the patient's lab results. Labs: Lab Results 12/03/24 12/03/24 12/03/24 Range/Units 22:04 22:20 22:50 WBC 9.94 (4.50-11.00) K/uL RBC 4.80 (4.00-5.20) m/uL Hgb 14.1 (12.0-16.0) gm/dL Hct 41.2 (33.0-51.0) % MCV 86 (80-100) fL MCH 29 (26-34) pg MCHC 34 (32-36) gm/dL RDW Coeff of Lorenzo 12.5 (11.5-15.5) % Plt Count 280 (140-440) K/uL Neut % (Auto) 61.1 (42.0-72.0) % Lymph % (Auto) 29.6 (20-44) % [place] % (Auto) 6.2 (0.0-11.0) % Eos % (Auto) 2.3 (0.0-7.0) % Baso % (Auto) 0.7 (0.0-3.0) % Neut # (Auto) 6.07 (1.7-7.0) K/uL Lymph # (Auto) 2.94 H (0.90-2.90) K/uL [place] # (Auto) 0.60 (0.00-0.90) K/UL Eos # (Auto) 0.23 (0.00-0.50) K/uL Baso # (Auto) 0.07 (0.00-0.30) K/uL Abs Immat Gran (auto) 0.01 (0.00-0.30) K/uL Imm/Tot Granulo (auto) 0.1 % D-Dimer Quant (PE/DVT) < 0.27 (0.00-0.50) ug/ml Sodium 138 (135-149) mmol/L Potassium 3.5 L (3.6-5.1) mmol/L Chloride 100 (96-114) mmol/L Carbon Dioxide 30 (20-32) mmol/L Anion Gap 8 (7-15) mEq/L BUN 7 (5-24) mg/dL Creatinine 0.9 (0.5-1.5) mg/dL Estimated Creat Clear 88.85 Estimated GFR 86 ml/min Glucose 91 (60-115) mg/dL Calcium 9.6 (8.4-10.6) mg/dL Total Bilirubin 0.9 (0.1-1.5) mg/dL AST 35 (12-35) U/L ALT 20 (4-35) U/L Alkaline Phosphatase 57 (40-150) U/L Troponin I < 0.01 (0.01-0.04) ng/mL Total Protein 7.5 (6.0-8.3) g/dL Albumin 4.7 (3.3-5.0) g/dL Lipase 40 (23-300) U/L SARS-CoV-2 (PCR) Negative SARS-CoV-2 (Negative) Influenza Type A (PCR) Negative PCR FLU A (Negative) Influenza Type B (PCR) Negative PCR FLU B (Negative) RSV (PCR) Negative PCR RSV (Negative) POC Troponin I 0.00 L (0.01-0.04) ng/ml Imaging Data Chest x-ray: Radiologist's impression: FINDINGS: Cardiovascular: Heart size and pulmonary vasculature are within normal limits. Lungs and pleural spaces: The lungs are clear. No sign of pleural effusion. No pneumothorax identified. Bones and soft tissues: Metallic densities projected over the breasts, presumably piercings. The bones are unremarkable. IMPRESSION: No acute cardiopulmonary findings. Discharge Plan Discharge Clinical Impression: Chest pain, Palpitations Patient Disposition: Home, Self-Care Condition: Stable Additional Instructions: Please follow-up with your primary care provider in the next 3-5 days for further evaluation and follow-up. Please call to schedule an appointment. Please continue on medications, please drink plenty of water. Please alternate taking Tylenol 1000 mg and ibuprofen 600 mg every 6 hours as needed for pain. Please return to the emergency department if you develop any worsening symptoms. It was a pleasure taking care of you today. We hope you feel better soon. Prescriptions: No Action dextroamphetamine-amphetamine [Adderall] 15 mg tablet 15 mg PO TID Rx Instructions: administer doses at least 4-6 hours apart Follow Up/Referrals: Provider,Not a Local [Non-Staff, Family Practice] Stand Alone Forms: [employer] Info Instructions
[2024-12-03 23:34] LABS: D Dimer Quantitative* < 0.27 ug/ml (0.00-0.50)
[2024-12-03] MEDS: IBUPROFEN 200 MG TABLET 600 MG PO (23:57)
[2024-12-03] MEDS: GI COCKTAIL (VISC LIDO/ANTACID) 30 ML PO (23:58)
[2024-12-04] VITALS (11 sets, daily range): BP systolic 129–143; BP diastolic 74–97; PULSE 65–83; RESP 10–20; O2SAT 98–99
--- OUTSIDE RECORDS SUMMARY | 2024-12-04 00:03 | XMS_ITS | Clinical Summary ---
Author Organization [facility] Address [address] [place] [address] Care Team Providers Care Outreach Clinician Name Role Phone Zoila Huff MD Primary Care Provider Source Comments You are receiving this document as you are listed as the primary care provider,follow-up provider, or the patient has been referred to you for consultation.This is in compliance with the Medicare andBl[facility] Health Systemcaid EHR Incentive Program,which states Providers who transition their patient to another setting of careor provider of care or refers their patient to another provider of care shouldprovide summary care record for each transition of care or referral. [place] Allergies Active Allergy Reactions Criticality Noted Date [...] Date Type Department Care Team Description 10/29/[address] [address] Zoila Huff MD Refill 09/21/2024 E-Visit [facility] [address] [place] [address] Christy Arriaga, INFORMATION RESOURCES MANAGER, PILOT SUPERVISOR from Last 3 Months Immunizations Immunization Administration Dates Next Due 4vHPV (Gardasil) 08/04/2007,01/28/2007, 7 DTP 05/20/1995, 2,04/07/1991,1990 Flu Vac Preserv Free (3+yrs) 01/14/2012, 11/14/2009,11/22/2008,2007 HepA Ped/Adol (1-18 yrs) 12/14/2007,08/04/2007 HepB Ped/Adol (0-18 yrs) 09/19/2003,04/04/2003,0 11/04/2002 Influenza IIV4 (Quadrivalent ) 0.5mL (47116) 12/19/2016,11/10/2015,12/12/2014,2013 MCV4 (Menactra) 02/07/2005 MMR 11/04/2002,11/24/1991 Pfizer [...] 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, 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 Not on file Not [...] 4th Generation (07/16/2021 3:16 PM CDT) Pathologist [facility] HIV 1/2 Antigen/Antib sirena (4th generation) Negative (Non Reactive) Negative (Non Reactive) 07/16/2021 9:16 PM CDT [facility] Comment:HIV-1 p24 Antigen an d HIV-1/HIV-2 Antibody not detected Blood Venipuncture / Unknown 07/16/2021 3:16 PM CDT 07/16/2021 3:16 PM CDT Alber Cam PA-C LAB_1 Final Result Performing Organization Address [facility] de Phone Number [facility] [address] [place] [address] * Hepatitis C Antibody [HCAB] (08/17/2019 2:25 PM CDT) Pathologist [facility] Hepatitis C Antibody Negative (Non Reactive) Negative (Non Reactive) 08/17/2019 6:56 PM CDT [facility] Comment:Antibodies to HCV no t detected. Does not exclude the possiblity of exposure to HCV. Blood Venipuncture / Unknown 08/17/2019 2:25 PM CDT 08/17/2019 2:25 PM CDT Zulay Stock MD LAB_1 Final Result Performing Organization Address City/[facility] Co de Phone Number [facility] [address] [place] [address] * Pap Smear (08/01/2017 3:15 PM CDT) 08/01/2017 3:15 PM CDT Narrative PN SOFT - 08/06/2017 3:13 PM CDT FINAL GYNECOLOGICAL CYTOLOGY REPORT Pathology #: [id number] Date Obtained: 08/01/2017 Date Received: 08/05/2017 INTERPRETATION/RESULTS: [...] false-negative reports may occur. Performed at [facility], [address] [place] [address] True Antonio MD LAB_1 Final Result PN SOFT [address] [place] [address] from Last 3 Months or Most Recently Relevant to Health Maintenance Insurance FULLY INSURED R FULLY INSURED FULLY INSURED FULLY INSURED [phone] (Work) [id number] [id number] * Guarantor: Ramakrishna Ibarra Account Type Relation to Patient Date of Phone Billing Address Personal/Family 1965 (Work) [id number] [id number] Care Teams Outreach Clinician Relationship Specialty [place] [address] [place] [address] PCP - General Family Practice 10/31/15
--- OUTSIDE RECORDS SUMMARY | 2024-12-04 00:03 | XMS_ITS | Clinical Summary ---
Author Organization [facility] Address [address] [place] [address] Care Team Providers Care Mold Checker Name Role Phone Elsewhere, Pcp Primary Care Provider Unavailabl e Source Comments Patient records contain information from all sites at [facility]. For routine questions regarding patient records, call [phone] during business hours, M-F 8:00 AM - 5:00 PM Central Time. Record requests for emergency care only can be directed to [phone] at any time.[facility] Allergies Active Allergy Reactions Criticality Noted Date Comments Amoxicillin Hives (Reselect Reaction),Rash,Swellin g 05/14/2005 Duloxetine Other (see comments) Low 08/18/2021 Flu like feeling, drowsiness Metronidazole Hcl Hives (Reselect Reaction),Swelling High 03/01/2013 Varenicline Headache,Nausea And Vomiting 07/13/2012 Medications EPINEPHrine 0.3 mg/0.3 mL injection syringe Inject 0.3 mL (0.3 mg total) intramuscularly as needed for anaphylaxis for up to 10 days. Inject into the thigh. 2 each 1 07/17/19 21 Active acetaminophen (TylenoL) 325 mg tablet Take 650 mg by mouth. 08/12/19 19 Active dextroamphetam ine-amphetamin e (AdderalL) 15 mg tablet Take 15 mg by mouth. 09/28/19 24 Active ibuprofen 600 mg tablet Take 600 mg by mouth. 06/25/19 18 Active albuterol 90 mcg/actuation inhaler Inhale 2 puffs every 6 (six) hours as needed for wheezing. 6.7 g 04/27/19 25 Active albuterol 2.5 mg /3 mL nebulizer solution Inhale 3 mL (2.5 mg total) by nebulization every 6 (six) hours as needed for wheezing for up to 10 days. 75 mL 04/27/19 25 Active benzonatate (Tessalon Perles) 100 mg capsule Take 1 capsule (100 mg total) by mouth 3 (three) times a day as needed for cough. 20 capsule 04/27/19 25 Active baclofen (LioresaL) 10 mg tablet Take 1 tablet (10 mg total) by mouth 3 (three) times a day for 10 days. 30 tablet 11/30/19 25 025 Active naproxen (Naprosyn) 500 mg tablet Take 1 tablet (500 mg total) by mouth every 12 (twelve) hours as needed for pain. 20 tablet 11/30/19 25 Active Active Problems No known active problems Encounters Date Type Department Care Team Description 11/29/2024 2:55 PM CDT - 11/29/2024 4:00 PM CDT [facility] [address] [place] [phone] Katie Lee P.A.-C., P.A. 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 Gender Identity Not on file Sexual Orientation [...] Mass Index 32.74 11/29/2024 2:09 PM CDT Plan of Treatment Health Maintenance Due Date Last Done Comments HIV Screening 1990 Hepatitis C Screening 1990 Hepatitis B Vaccines (1 of 3 - 19+ 3-dose series) 2009 Depression Screening (Annual PHQ-2) 03/10/2024 COVID-19 Vaccine ( season) 2024 08/25/2021 Influenza Vaccine (#1) 2024 7, 11/10/2015, 12/12/2014, Additional history exists DTaP,Tdap,and Td Vaccines (8 - Td or Tdap) 06/22/2027 06/21/2017, 02/08/2014, 08/27/2007, Additional history exists IPV Vaccines Completed 05/20/1995, 11/08, 04/07/1991, Additional history exists HPV Vaccines Completed 08/04/2007, 01/09, 06/26/2006 Pneumococcal vaccine (0-49 years) Aged Out No longer eligible based on patient's age to complete this topic Insurance [facility] [employer] [facility] Care Teams Mold Checker Relationship Specialty Start Date End Date Elsewhere, Pcp PCP - General Family Medicine 07/17/20
--- OUTSIDE RECORDS SUMMARY | 2024-12-04 00:03 | XMS_ITS | Encounter Summary ---
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 Not on file Not on file documented as of this encounter Nursing Notes * Zoila Huff MD - 01/20/2023 4:42 PM CST Rx sent as requested NDWATER CONSULTANT * Elizabeth Kilpatrick RN - 01/20/2023 4:31 PM CST Clinician: Review order(s) and sign as appropriate and Close encounter Patient/foster care case manager request: New Order: Medication Specific Request: Adderall 30 mg Take 0.5 tablet three times daily Reason for Disposition Caller has NON-URGENT medicine question about med that PCP or specialist prescribed and triager unable to answer question Protocols used: Medication Question [id number] Spoke with patient states needs Adderall 30 mg Take 0.5 tablet three times daily sent to [facility]. Prescription was sent for Adderall 15 mg and there are no pharmacies that have the 15 mg dose. NDWATER CONSULTANT * Daren Quiñones - 01/20/2023 4:21 PM [...] I can help you with today? No NDWATER CONSULTANT documented in this encounter Plan of Treatment Not on file documented as of this encounter Visit Diagnoses Not on filedocumented in this encounter Care Teams A&P Mechanic Relationship Specialty [place] [address] [address] PCP - General Family Practice 10/31/15 documented as of this encounter
--- OUTSIDE RECORDS SUMMARY | 2024-12-04 00:03 | XMS_ITS | Encounter Summary ---
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 Declined appointment. Please advise. Protocol: VAGINAL [id number] Affirmative: Bad smelling vaginal discharge Disposition of [...] OBG for follow up. 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
--- OUTSIDE RECORDS SUMMARY | 2024-12-04 00:04 | XMS_ITS | Clinical Summary ---
Author Organization Mobile Address [facility] 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
--- OUTSIDE RECORDS SUMMARY | 2024-12-04 00:04 | XMS_ITS | Encounter Summary ---
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
--- OUTSIDE RECORDS SUMMARY | 2024-12-04 00:04 | XMS_ITS | Encounter Summary ---
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
[2024-12-04 00:17] LABS: PCR FLU A Negative PCR FLU A (Negative); PCR FLU B Negative PCR FLU B (Negative); PCR RSV Negative PCR RSV (Negative); SARS PCR* Negative SARS-CoV-2 (Negative)
== END 2024-12-04 01:05 | disposition home or self-care (01) ==
PROVIDERS: Emergency Provider Emergency Medicine; PCP Family Medicine
DX: R07.9 Chest pain, unspecified (principal); R00.2 Palpitations
CPT/HCPCS: 36415; 71046; 80053; 83690; 84484; 85025; 85379; 87631; 99284; 99285; A9270